=== PATIENT | male | born 1960 | race Caucasian/White ===

== ENCOUNTER 2020-03-21 09:48 | Inpatient (IN) | payer MEDICARE ==
[2020-03-21] MEDS ORDERED: NALOXONE HCL INH PRN (18:04)
[2020-03-21] MEDS ORDERED: Loperamide 2 MG Cap PO PRN (18:04)
[2020-03-21] MEDS ORDERED: Albuterol 8 GM Inhaler INH PRN (19:08)
[2020-03-21] MEDS ORDERED: Zolpidem 5 MG Tab PO PRN (20:00)
[2020-03-21] MEDS ORDERED: Triamcinolone Acetonide 0.1% Crm 15 GM Tube TOP SCH (20:00)
[2020-03-21] MEDS ORDERED: Tamsulosin 0.4 MG Cap.ER PO SCH (20:00)
[2020-03-21] MEDS: Cyclobenzaprine 10 MG Tab PO PRN (20:22)
[2020-03-21] MEDS: oxyCODONE 5 MG Tab PO PRN (20:22)
[2020-03-21] MEDS: atorvaSTATin 20 MG Tab PO SCH (20:23)
[2020-03-21] MEDS: Montelukast 10 MG Tab PO SCH (20:23)
[2020-03-21] MEDS: Pregabalin 25 MG Cap PO SCH (20:25)
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
[2020-03-22] MEDS: oxyCODONE 5 MG Tab PO PRN ×3 (02:08→21:14)
[2020-03-22] MEDS ORDERED: DEXTROAMPHETAMINE PO SCH (04:30)
[2020-03-22] MEDS ORDERED: AMPHETAMINE PO SCH (04:30)
[2020-03-22] MEDS ORDERED: Triamcinolone Acetonide 0.1% Crm 15 GM Tube TOP PRN (04:37)
[2020-03-22] MEDS: Venlafaxine 75 MG Cap.ER PO SCH (08:25)
[2020-03-22] MEDS: Losartan 100 MG Tab PO SCH (08:26)
[2020-03-22] MEDS: Cholecalciferol (Vitamin D3) 25 MCG Tab PO SCH (08:26)
[2020-03-22] MEDS: Metoprolol Succinate 25 MG Tab.ER PO SCH (08:26)
[2020-03-22] MEDS: Pregabalin 25 MG Cap PO SCH ×3 (08:27→19:58)
[2020-03-22] MEDS: Tamsulosin 0.4 MG Cap.ER PO SCH (08:27)
[2020-03-22] MEDS: Fluticasone Propionate Nasal Spray 16 GM Bottle NASBOTH SCH (08:28)
[2020-03-22] MEDS ORDERED: Aspirin 325 MG Tab PO ONE (10:30)
[2020-03-22] MEDS: atorvaSTATin 20 MG Tab PO SCH (19:57)
[2020-03-22] MEDS: Montelukast 10 MG Tab PO SCH (19:58)
[2020-03-22] MEDS: Cyclobenzaprine 10 MG Tab PO PRN (21:15)
[2020-03-23] MEDS: oxyCODONE 5 MG Tab PO PRN ×3 (04:29→20:12)
[2020-03-23] MEDS: Aspirin 325 MG Tab PO SCH (07:30)
[2020-03-23] MEDS: Cholecalciferol (Vitamin D3) 25 MCG Tab PO SCH (07:30)
[2020-03-23] MEDS: Tamsulosin 0.4 MG Cap.ER PO SCH (07:30)
[2020-03-23] MEDS: Pregabalin 25 MG Cap PO SCH ×3 (07:31→19:27)
[2020-03-23] MEDS: Metoprolol Succinate 25 MG Tab.ER PO SCH (07:31)
[2020-03-23] MEDS: Losartan 100 MG Tab PO SCH (07:31)
[2020-03-23] MEDS: Fluticasone Propionate Nasal Spray 16 GM Bottle NASBOTH SCH (07:32)
[2020-03-23] MEDS: Venlafaxine 75 MG Cap.ER PO SCH (07:37)
[2020-03-23] MEDS: atorvaSTATin 20 MG Tab PO SCH (19:27)
[2020-03-23] MEDS: Montelukast 10 MG Tab PO SCH (19:27)
[2020-03-23] MEDS: COLESTIPOL 1 GM PO SCH (20:12)
[2020-03-23] MEDS: Cyclobenzaprine 10 MG Tab PO PRN (20:13)
[2020-03-24] MEDS: oxyCODONE 5 MG Tab PO PRN ×3 (03:14→19:37)
[2020-03-24] MEDS: Pregabalin 25 MG Cap PO SCH ×3 (08:06→19:35)
[2020-03-24] MEDS: Metoprolol Succinate 25 MG Tab.ER PO SCH (08:06)
[2020-03-24] MEDS: Cholecalciferol (Vitamin D3) 25 MCG Tab PO SCH (08:06)
[2020-03-24] MEDS: Aspirin 325 MG Tab PO SCH (08:06)
[2020-03-24] MEDS: Tamsulosin 0.4 MG Cap.ER PO SCH (08:06)
[2020-03-24] MEDS: Losartan 100 MG Tab PO SCH (08:09)
[2020-03-24] MEDS: Venlafaxine 75 MG Cap.ER PO SCH (08:09)
[2020-03-24] MEDS: Fluticasone Propionate Nasal Spray 16 GM Bottle NASBOTH SCH (08:10)
[2020-03-24] MEDS: COLESTIPOL 1 GM PO SCH (08:10)
[2020-03-24] MEDS: Montelukast 10 MG Tab PO SCH (19:34)
[2020-03-24] MEDS: atorvaSTATin 20 MG Tab PO SCH (19:35)
[2020-03-25] MEDS: oxyCODONE 5 MG Tab PO PRN ×4 (01:21→22:19)
[2020-03-25] MEDS: Aspirin 325 MG Tab PO SCH (08:12)
[2020-03-25] MEDS: Venlafaxine 75 MG Cap.ER PO SCH (08:12)
[2020-03-25] MEDS: Tamsulosin 0.4 MG Cap.ER PO SCH (08:13)
[2020-03-25] MEDS: Fluticasone Propionate Nasal Spray 16 GM Bottle NASBOTH SCH (08:13)
[2020-03-25] MEDS: Metoprolol Succinate 25 MG Tab.ER PO SCH (08:13)
[2020-03-25] MEDS: Losartan 100 MG Tab PO SCH (08:13)
[2020-03-25] MEDS: Cholecalciferol (Vitamin D3) 25 MCG Tab PO SCH (08:13)
[2020-03-25] MEDS: Pregabalin 25 MG Cap PO SCH ×3 (08:13→19:25)
[2020-03-25] MEDS: COLESTIPOL 1 GM PO SCH (11:40)
[2020-03-25] MEDS: atorvaSTATin 20 MG Tab PO SCH (19:24)
[2020-03-25] MEDS: Montelukast 10 MG Tab PO SCH (19:24)
[2020-03-25] MEDS: Acetaminophen 500 MG Tab PO PRN (19:37)
[2020-03-26] MEDS: oxyCODONE 5 MG Tab PO PRN ×3 (04:29→18:06)
[2020-03-26] MEDS: Cholecalciferol (Vitamin D3) 25 MCG Tab PO SCH (07:44)
[2020-03-26] MEDS: Aspirin 325 MG Tab PO SCH (07:44)
[2020-03-26] MEDS: Pregabalin 25 MG Cap PO SCH ×3 (07:44→19:32)
[2020-03-26] MEDS: Losartan 100 MG Tab PO SCH (07:44)
[2020-03-26] MEDS: Metoprolol Succinate 25 MG Tab.ER PO SCH (07:44)
[2020-03-26] MEDS: Venlafaxine 75 MG Cap.ER PO SCH (07:44)
[2020-03-26] MEDS: Tamsulosin 0.4 MG Cap.ER PO SCH (07:44)
[2020-03-26] MEDS: COLESTIPOL 1 GM PO SCH (07:45)
[2020-03-26] MEDS: Fluticasone Propionate Nasal Spray 16 GM Bottle NASBOTH SCH (07:46)
[2020-03-26] MEDS: atorvaSTATin 20 MG Tab PO SCH (19:33)
[2020-03-26] MEDS: Montelukast 10 MG Tab PO SCH (19:33)
[2020-03-27] MEDS: oxyCODONE 5 MG Tab PO PRN ×4 (00:20→18:26)
[2020-03-27] MEDS: Losartan 100 MG Tab PO SCH (08:07)
[2020-03-27] MEDS: Metoprolol Succinate 25 MG Tab.ER PO SCH (08:07)
[2020-03-27] MEDS: Pregabalin 25 MG Cap PO SCH ×3 (08:07→19:49)
[2020-03-27] MEDS: Cholecalciferol (Vitamin D3) 25 MCG Tab PO SCH (08:07)
[2020-03-27] MEDS: Aspirin 325 MG Tab PO SCH (08:08)
[2020-03-27] MEDS: Tamsulosin 0.4 MG Cap.ER PO SCH (08:08)
[2020-03-27] MEDS: Venlafaxine 75 MG Cap.ER PO SCH (08:08)
[2020-03-27] MEDS: COLESTIPOL 1 GM PO SCH (08:10)
[2020-03-27] MEDS: atorvaSTATin 20 MG Tab PO SCH (19:49)
[2020-03-27] MEDS: Montelukast 10 MG Tab PO SCH (19:49)
[2020-03-28] MEDS: oxyCODONE 5 MG Tab PO PRN ×4 (00:15→19:23)
[2020-03-28] MEDS: Venlafaxine 75 MG Cap.ER PO SCH (07:21)
[2020-03-28] MEDS: COLESTIPOL 1 GM PO SCH (07:21)
[2020-03-28] MEDS: Cholecalciferol (Vitamin D3) 25 MCG Tab PO SCH (07:22)
[2020-03-28] MEDS: Aspirin 325 MG Tab PO SCH (07:22)
[2020-03-28] MEDS: Losartan 100 MG Tab PO SCH (07:22)
[2020-03-28] MEDS: Tamsulosin 0.4 MG Cap.ER PO SCH (07:24)
[2020-03-28] MEDS: Pregabalin 25 MG Cap PO SCH ×3 (07:24→19:23)
[2020-03-28] MEDS: Metoprolol Succinate 25 MG Tab.ER PO SCH (07:25)
[2020-03-28] MEDS: Acetaminophen 500 MG Tab PO PRN (14:45)
[2020-03-28] MEDS: atorvaSTATin 20 MG Tab PO SCH (19:23)
[2020-03-28] MEDS: Montelukast 10 MG Tab PO SCH (19:23)
[2020-03-29] MEDS: oxyCODONE 5 MG Tab PO PRN ×4 (01:26→19:32)
[2020-03-29] MEDS: Venlafaxine 75 MG Cap.ER PO SCH (07:16)
[2020-03-29] MEDS: Tamsulosin 0.4 MG Cap.ER PO SCH (07:16)
[2020-03-29] MEDS: Pregabalin 25 MG Cap PO SCH ×2 (07:17→16:54)
[2020-03-29] MEDS: Aspirin 325 MG Tab PO SCH (07:17)
[2020-03-29] MEDS: Cholecalciferol (Vitamin D3) 25 MCG Tab PO SCH (07:17)
[2020-03-29] MEDS: Losartan 100 MG Tab PO SCH (07:18)
[2020-03-29] MEDS: COLESTIPOL 1 GM PO SCH (07:18)
[2020-03-29] MEDS: Metoprolol Succinate 25 MG Tab.ER PO SCH (07:19)
[2020-03-29] MEDS ORDERED: Pregabalin 50 MG Cap PO ONE (16:30)
[2020-03-29] MEDS: atorvaSTATin 20 MG Tab PO SCH (19:13)
[2020-03-29] MEDS: Montelukast 10 MG Tab PO SCH (19:13)
[2020-03-29] MEDS: Pregabalin 50 MG Cap PO SCH (19:14)
[2020-03-30] MEDS: traMADol 50 MG Tab PO PRN
[2020-03-30] MEDS: Venlafaxine 75 MG Cap.ER PO SCH (07:23)
[2020-03-30] MEDS: Pregabalin 50 MG Cap PO SCH ×3 (07:24→19:22)
[2020-03-30] MEDS: Aspirin 325 MG Tab PO SCH (07:24)
[2020-03-30] MEDS: Losartan 100 MG Tab PO SCH (07:25)
[2020-03-30] MEDS: Metoprolol Succinate 25 MG Tab.ER PO SCH (07:25)
[2020-03-30] MEDS: COLESTIPOL 1 GM PO SCH (07:26)
[2020-03-30] MEDS: Cholecalciferol (Vitamin D3) 25 MCG Tab PO SCH (07:26)
[2020-03-30] MEDS: Tamsulosin 0.4 MG Cap.ER PO SCH (07:26)
[2020-03-30] MEDS: oxyCODONE 5 MG Tab PO PRN ×2 (07:30→14:20)
[2020-03-30] MEDS: Montelukast 10 MG Tab PO SCH (19:22)
[2020-03-30] MEDS: atorvaSTATin 20 MG Tab PO SCH (19:22)
[2020-03-31] MEDS: oxyCODONE 5 MG Tab PO PRN ×2 (00:26→13:42)
[2020-03-31] MEDS: Metoprolol Succinate 25 MG Tab.ER PO SCH (07:33)
[2020-03-31] MEDS: Pregabalin 50 MG Cap PO SCH ×3 (07:34→20:28)
[2020-03-31] MEDS: Aspirin 325 MG Tab PO SCH (07:34)
[2020-03-31] MEDS: Tamsulosin 0.4 MG Cap.ER PO SCH (07:35)
[2020-03-31] MEDS: traMADol 50 MG Tab PO PRN ×2 (07:35→20:28)
[2020-03-31] MEDS: Cholecalciferol (Vitamin D3) 25 MCG Tab PO SCH (07:35)
[2020-03-31] MEDS: Venlafaxine 75 MG Cap.ER PO SCH (07:36)
[2020-03-31] MEDS: Losartan 100 MG Tab PO SCH (07:36)
[2020-03-31] MEDS: COLESTIPOL 1 GM PO SCH (07:37)
[2020-03-31] MEDS: Cyclobenzaprine 10 MG Tab PO PRN (20:27)
[2020-03-31] MEDS: Montelukast 10 MG Tab PO SCH (20:28)
[2020-03-31] MEDS: atorvaSTATin 20 MG Tab PO SCH (20:28)
[2020-04-01] MEDS: oxyCODONE 5 MG Tab PO PRN ×3 (02:46→14:43)
[2020-04-01] MEDS: Aspirin 325 MG Tab PO SCH (07:54)
[2020-04-01] MEDS: Losartan 100 MG Tab PO SCH (07:54)
[2020-04-01] MEDS: Metoprolol Succinate 25 MG Tab.ER PO SCH (07:54)
[2020-04-01] MEDS: Pregabalin 50 MG Cap PO SCH ×3 (07:54→19:50)
[2020-04-01] MEDS: Cholecalciferol (Vitamin D3) 25 MCG Tab PO SCH (07:54)
[2020-04-01] MEDS: Tamsulosin 0.4 MG Cap.ER PO SCH (07:54)
[2020-04-01] MEDS: Venlafaxine 75 MG Cap.ER PO SCH (07:55)
[2020-04-01] MEDS: COLESTIPOL 1 GM PO SCH (07:57)
[2020-04-01] MEDS: Montelukast 10 MG Tab PO SCH (19:50)
[2020-04-01] MEDS: traMADol 50 MG Tab PO PRN (19:50)
[2020-04-01] MEDS: atorvaSTATin 20 MG Tab PO SCH (19:50)
[2020-04-02] MEDS: oxyCODONE 5 MG Tab PO PRN ×3 (01:50→19:58)
[2020-04-02] MEDS: Cyclobenzaprine 10 MG Tab PO PRN (01:50)
[2020-04-02] MEDS: Aspirin 325 MG Tab PO SCH (08:19)
[2020-04-02] MEDS: COLESTIPOL 1 GM PO SCH (08:19)
[2020-04-02] MEDS: Losartan 100 MG Tab PO SCH (08:19)
[2020-04-02] MEDS: Pregabalin 50 MG Cap PO SCH ×3 (08:20→19:58)
[2020-04-02] MEDS: Tamsulosin 0.4 MG Cap.ER PO SCH (08:20)
[2020-04-02] MEDS: Venlafaxine 75 MG Cap.ER PO SCH (08:20)
[2020-04-02] MEDS: Metoprolol Succinate 25 MG Tab.ER PO SCH (08:21)
[2020-04-02] MEDS: Cholecalciferol (Vitamin D3) 25 MCG Tab PO SCH (08:21)
[2020-04-02] MEDS: traMADol 50 MG Tab PO PRN (08:22)
[2020-04-02] MEDS: atorvaSTATin 20 MG Tab PO SCH (19:57)
[2020-04-02] MEDS: Montelukast 10 MG Tab PO SCH (19:57)
[2020-04-03] MEDS: Acetaminophen 500 MG Tab PO PRN ×2 (01:38→13:48)
[2020-04-03] MEDS: traMADol 50 MG Tab PO PRN ×2 (01:38→13:48)
[2020-04-03] MEDS: Cholecalciferol (Vitamin D3) 25 MCG Tab PO SCH (07:45)
[2020-04-03] MEDS: Tamsulosin 0.4 MG Cap.ER PO SCH (07:45)
[2020-04-03] MEDS: Aspirin 325 MG Tab PO SCH (07:46)
[2020-04-03] MEDS: Pregabalin 50 MG Cap PO SCH ×3 (07:46→19:52)
[2020-04-03] MEDS: Metoprolol Succinate 25 MG Tab.ER PO SCH (07:48)
[2020-04-03] MEDS: COLESTIPOL 1 GM PO SCH (07:49)
[2020-04-03] MEDS: Venlafaxine 75 MG Cap.ER PO SCH (07:54)
[2020-04-03] MEDS: oxyCODONE 5 MG Tab PO PRN ×2 (08:02→23:51)
[2020-04-03] MEDS: Losartan 100 MG Tab PO SCH (09:33)
--- NOTE | 2020-04-03 14:58 | PCM.SN.2 ---
- Free Text/Narrative Note: Patient seen today to discuss home safety. Has been ambulating short distances with a walker but is very difficult due to recent amputation. This would not work for him to accomplish simple ADLs due to his balance concern. Will need to acquire a wheelchair to have this in his home to prevent falls until healing has occurred and able to be fitted for a prosthesis.
[2020-04-03] MEDS: atorvaSTATin 20 MG Tab PO SCH (19:52)
[2020-04-03] MEDS: Montelukast 10 MG Tab PO SCH (19:52)
[2020-04-04] MEDS: traMADol 50 MG Tab PO PRN ×2 (05:11→16:52)
[2020-04-04] MEDS: Pregabalin 50 MG Cap PO SCH ×3 (08:10→20:31)
[2020-04-04] MEDS: oxyCODONE 5 MG Tab PO PRN ×2 (08:10→20:25)
[2020-04-04] MEDS: Aspirin 325 MG Tab PO SCH (08:10)
[2020-04-04] MEDS: Metoprolol Succinate 25 MG Tab.ER PO SCH (08:10)
[2020-04-04] MEDS: Losartan 100 MG Tab PO SCH (08:10)
[2020-04-04] MEDS: Cholecalciferol (Vitamin D3) 25 MCG Tab PO SCH (08:10)
[2020-04-04] MEDS: Venlafaxine 75 MG Cap.ER PO SCH (08:10)
[2020-04-04] MEDS: COLESTIPOL 1 GM PO SCH (08:11)
[2020-04-04] MEDS: Tamsulosin 0.4 MG Cap.ER PO SCH (08:11)
[2020-04-04] MEDS: Montelukast 10 MG Tab PO SCH (20:20)
[2020-04-04] MEDS: atorvaSTATin 20 MG Tab PO SCH (20:21)
[2020-04-04] MEDS: Cyclobenzaprine 10 MG Tab PO PRN (20:25)
[2020-04-05] MEDS: oxyCODONE 5 MG Tab PO PRN (04:59)
[2020-04-05] MEDS: Metoprolol Succinate 25 MG Tab.ER PO SCH (08:35)
[2020-04-05] MEDS: Aspirin 325 MG Tab PO SCH (08:35)
[2020-04-05] MEDS: Cholecalciferol (Vitamin D3) 25 MCG Tab PO SCH (08:37)
[2020-04-05] MEDS: COLESTIPOL 1 GM PO SCH (08:37)
[2020-04-05] MEDS: Losartan 100 MG Tab PO SCH (08:37)
[2020-04-05] MEDS: Tamsulosin 0.4 MG Cap.ER PO SCH (08:37)
[2020-04-05] MEDS: Pregabalin 50 MG Cap PO SCH (08:38)
[2020-04-05] MEDS: Venlafaxine 75 MG Cap.ER PO SCH (08:38)
[2020-04-05 08:49] VITALS: BP 97/62; PULSE 98
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
== END 2020-04-05 11:25 | disposition home health service (06) | DRG 560 ==
LOC: CC.MS 16:01 → UNDOADMIN 16:01 → CC.MS 16:50
PROVIDERS: ADMIT Family Medicine; ATTEND Family Medicine
DX: Z47.81 Encounter for orthopedic aftercare following surgical amputation (principal); K50.90 Crohn's disease, unspecified, without complications; S87.81XD Crushing injury of right lower leg, subsequent encounter; E11.9 Type 2 diabetes mellitus without complications; E78.00 Pure hypercholesterolemia, unspecified; I10 Essential (primary) hypertension; J44.9 Chronic obstructive pulmonary disease, unspecified; G47.30 Sleep apnea, unspecified; K44.9 Diaphragmatic hernia without obstruction or gangrene; N40.0 Benign prostatic hyperplasia without lower urinary tract symptoms; G89.29 Other chronic pain; M54.9 Dorsalgia, unspecified; F41.9 Anxiety disorder, unspecified; F32.9 Major depressive disorder, single episode, unspecified; D64.9 Anemia, unspecified; Z87.891 Personal history of nicotine dependence; Z79.899 Other long term (current) drug therapy; Z89.511 Acquired absence of right leg below knee; Z88.0 Allergy status to penicillin; Z88.8 Allergy status to other drugs, medicaments and biological substances; Z88.1 Allergy status to other antibiotic agents; Z79.82 Long term (current) use of aspirin
CPT/HCPCS: 97110-GP; 97116-GP; 97161-GP; 97530-GP; A9270-GY